=== PATIENT | female | born 1975 | race Caucasian/White ===

== ENCOUNTER 2017-11-11 08:49 | Outpatient (CLI) | payer BC ==
--- NOTE | 2017-11-11 11:14 | MMO ---
BILATERAL MAMMOGRAMS: HISTORY: Screening mammography. COMPARISON: None. Baseline exam. FINDINGS: Scattered fibroglandular densities. Focal asymmetry at the lateral aspect of the right breast on the CT view is noted without correlate on the MLO view. No dominate mass or suspicious calcifications. The study was evaluated with the assistance of computer-aided detection. IMPRESSION: BI-RADS category 2. Benign findings. Suggest routine followup. BIRADS 2: Benign Finding(s) Routine annual screening mammography (for women over age 40) POS: [facility]
== END 2017-11-11 08:50 | disposition home or self-care (01) ==
LOC: SCSMAMMO 08:49
PROVIDERS: ATTEND Family Medicine
DX: Z12.31 Encounter for screening mammogram for malignant neoplasm of breast (principal)
CPT/HCPCS: 77067